=== PATIENT | female | born 1985 | race Caucasian/White ===

== ENCOUNTER 2016-11-29 16:15 | Outpatient (RCR) | payer OTHER | END 2016-12-03 | disposition home or self-care (01) | LOC: MKS.ESL.PT | DX: M54.2 Cervicalgia (principal) ==

== ENCOUNTER 2017-03-07 16:15 | Outpatient (RCR) | payer OTHER | END 2017-03-14 | disposition still patient (30) | LOC: MKS.ESL.PT | DX: M54.2 Cervicalgia (principal) ==